=== PATIENT | male | born 1960 | race Caucasian/White ===

== ENCOUNTER 2017-06-07 11:18 | Emergency (ER) | payer BC, OTHER ==
[~2017-06-07] VITALS: Ht 177.8 cm; Wt 115.0 kg
[~2017-06-07 11:18] MED LIST: ATOR40TA75 PO; BAYE325T12 PO; CIPR-249 PO; FARX1TAB5 PO; FENO48TA2 PO; GLIP1TAB51 PO; LISI2.5T3 PO; METF500T13 PO; PERC5TAB12 PO; SENN8.6T60 PO; VICT18IN SC
[2017-06-07] MEDS ORDERED: VIAG100T (11:33)
[2017-06-07] MEDS ORDERED: TOUJ1.2I (11:33)
--- NOTE | 2017-06-07 13:22 | REP ---
Clinical: Left testicular pain. Technique: Real time jimenez scale and color Doppler evaluation using linear high frequency transducer. Findings: Asymmetric increased vascularity to the left epididymis suggests acute left epididymitis. The bilateral testicles are normal in contour, size, echogenicity and vascularity without intratesticular mass lesion, infectious/inflammatory process or torsion. Incidental right epididymal head cyst measures 5 mm. No hydrocele. No varicocele. Right testicle measures 4.2 x 2.0 x 2.9 cm. Left testicle measures 3.7 x 2.0 x 3.1 cm. Impression: Left sided epididymitis. Signed by Rubin Zavaleta MD 06/07/2017 01:14 P
[2017-06-07] MEDS ORDERED: CIPR-249 PO (13:26)
[2017-06-07] MEDS ORDERED: NAPR500T PO (13:26)
[2017-06-07 13:34] VITALS: BP 109/67
== END 2017-06-07 13:35 | disposition home or self-care (01) ==
LOC: M ED 11:18
DX: R30.0 Dysuria (principal); N45.1 Epididymitis; I10 Essential (primary) hypertension; Z79.899 Other long term (current) drug therapy; Z79.84 Long term (current) use of oral hypoglycemic drugs; Z85.46 Personal history of malignant neoplasm of prostate

== ENCOUNTER → 2017-07-01 | Outpatient (REF) | payer OTHER ==
[~2017-07-01] MED LIST changes: +NAPR500T PO; +TOUJ1.2I; +VIAG100T
== END ==
LOC: M SMT 17:01
PROVIDERS: ATTEND Nurse Practitioner Women's Health
DX: N45.1 Epididymitis (principal)

== ENCOUNTER → 2019-06-24 | Outpatient (REF) | payer OTHER ==
[~2019-06-24] MED LIST changes: +GLIP10TA18 PO; -GLIP1TAB51 PO; +LISI-1046 PO; -LISI2.5T3 PO; +NAPR-837 PO; -NAPR500T PO
[2019-06-24 14:21] LABS: INR 2.12; PROTHROMBIN TIME 23.5 SECONDS (11.8-14.0)
== END ==
LOC: M SHH 13:16
PROVIDERS: ATTEND Internal Medicine Cardiovascular Disease
DX: Z95.2 Presence of prosthetic heart valve (principal)

== ENCOUNTER → 2020-06-24 | Outpatient (CLI) | payer OTHER ==
[~2020-06-24] MED LIST changes: +AMOX500C PO; +ASPI81TA86 PO; +FARX1TAB3 PO; -FENO48TA2 PO; +FENO48TA7 PO; -LISI-1046 PO; +LISI2.5T2 PO; +VASC1CAP2 PO; +WARF-20 PO
== END ==
LOC: M LABSMTC 08:48
PROVIDERS: ATTEND Anesthesiology
DX: Z01.812 Encounter for preprocedural laboratory examination (principal); Z20.828 Contact with and (suspected) exposure to other viral communicable diseases

== ENCOUNTER 2020-06-29 08:55 | Day surgery (SDC) | payer BC, OTHER ==
[~2020-06-29] VITALS: Ht 180.3 cm; Wt 120.6 kg
[~2020-06-29 08:55] MED LIST changes: -AMOX500C PO; +NS 1,000 ML IV ONE
[2020-06-29] MEDS ORDERED: AMOX500C PO (09:44)
[2020-06-29] MEDS ORDERED: propofoL 500 MG/50 ML VIAL As Ordered ONE ×2 (11:11→12:02)
[2020-06-29] MEDS ORDERED: LIDOCAINE 2% 100MG/5ML SDV (FOR ANES.) As Ordered ONE (11:11)
[2020-06-29] MEDS ORDERED: ePHEDrine SULFATE 25 MG/5 ML(5MG/ML) SYRINGE As Ordered ONE (11:29)
--- NOTE | 2020-06-29 12:19 | ROOR ---
Patient Name: Aramis Do Procedure Date: 06/29/2020 11:09 AM Date of : 1960 Age: 60 Room: [facility] Gender: Male Note Status: Finalized Procedure: Colonoscopy Indications: Screening for colorectal malignant neoplasm Providers: Reuben Schwarz MD Referring MD: EVERETT MILTON MD Requesting Provider: Medicines: Monitored Anesthesia Care Complications: No immediate complications. Procedure: Pre-Anesthesia Assessment: - Prior to the procedure, a History and Physical was performed, and patient medications and allergies were reviewed. The patient is competent. The risks and benefits of the procedure and the sedation options and risks were discussed with the patient. All questions were answered and informed consent was obtained. Patient identification and proposed procedure were verified by the physician, the nurse and the anesthesiologist in the procedure room. Mental Status Examination: alert and oriented. Airway Examination: normal oropharyngeal airway and neck mobility. Respiratory Examination: clear to auscultation. CV Examination: normal. Prophylactic Antibiotics: The patient does not require prophylactic antibiotics. Prior Anticoagulants: The patient has taken Coumadin (warfarin), last dose was 1 day prior to procedure. ASA Grade Assessment: III - A patient with severe systemic disease. After reviewing the risks and benefits, the patient was deemed in satisfactory condition to undergo the procedure. The anesthesia plan was to use monitored anesthesia care (MAC). Immediately prior to administration of medications, the patient was re-assessed for adequacy to receive sedatives. The heart rate, respiratory rate, oxygen saturations, blood pressure, adequacy of pulmonary ventilation, and response to care were monitored throughout the procedure. The physical status of the patient was re-assessed after the procedure. The Colonoscope was introduced through the anus and advanced to the terminal ileum, with identification of the appendiceal orifice and IC valve. The colonoscopy was technically difficult and complex due to significant looping. Successful completion of the procedure was aided by using manual pressure. The patient tolerated the procedure well. The quality of the bowel preparation was good. The ileocecal valve, appendiceal orifice, and rectum were photographed. Scope insertion time was 8 minutes. Scope withdrawal time was 10 minutes. The total duration of the procedure was 20 minutes. Findings: The perianal and digital rectal examinations were normal. The terminal ileum appeared normal. Three sessile polyps were found in the ascending colon and cecum. The polyps were 3 to 5 mm in size. These polyps were removed with a cold biopsy forceps. Resection and retrieval were complete. Verification of patient identification for the specimen was done by the physician and nurse using the patient's name, date and medical record number. Estimated blood loss was minimal. A 10 mm polyp was found in the descending colon. The polyp was sessile. The polyp was removed with a cold snare. Resection and retrieval were complete. For hemostasis, one hemostatic clip was successfully placed. There was no bleeding at the end of the procedure. A few small-mouthed diverticula were found in the sigmoid colon. Non-bleeding external and internal hemorrhoids were found during retroflexion. The hemorrhoids were medium-sized. Impression: - The examined portion of the ileum was normal. - Three 3 to 5 mm polyps in the ascending colon and in the cecum, removed with a cold biopsy forceps. Resected and retrieved. - One 10 mm polyp in the descending colon, removed with a cold snare. Resected and retrieved. Clip was placed. - Diverticulosis in the sigmoid colon. - Non-bleeding external and internal hemorrhoids. Recommendation: - Patient has a contact number available for emergencies. The signs and symptoms of potential delayed complications were discussed with the patient. Return to normal activities tomorrow. Written discharge instructions were provided to the patient. - High fiber diet. - Continue present medications. - Continue Coumadin (warfarin) at prior dose. Refer to primary physician for further adjustment of therapy. - Await pathology results. - Repeat colonoscopy in 3 - 5 years for surveillance based on pathology results. - Telephone GI clinic for pathology results in 2 weeks. - Return to primary care physician. Reuben Schwarz MD Reuben Schwarz MD 06/29/2020 12:18:14 PM Electronically signed by Reuben Schwarz MD Number of Addenda: 0 Note Initiated On: 06/29/2020 11:09 AM Estimated Blood Loss: Estimated blood loss was minimal.
[2020-06-29 12:36] VITALS: BP 120/56
== END 2020-06-29 12:36 | disposition home or self-care (01) ==
LOC: M OPP 08:55
PROVIDERS: ATTEND Internal Medicine Gastroenterology
DX: Z12.11 Encounter for screening for malignant neoplasm of colon (principal); K63.5 Polyp of colon; K57.30 Diverticulosis of large intestine without perforation or abscess without bleeding; K64.8 Other hemorrhoids; E11.9 Type 2 diabetes mellitus without complications; Z79.4 Long term (current) use of insulin; Z79.82 Long term (current) use of aspirin; Z79.01 Long term (current) use of anticoagulants; Z79.899 Other long term (current) drug therapy; Z85.46 Personal history of malignant neoplasm of prostate

== ENCOUNTER → 2020-08-11 | Outpatient (REF) | payer OTHER ==
[~2020-08-11] MED LIST changes: +AMOX500C PO; -NS 1,000 ML IV ONE
[2020-08-11 17:51] LABS: CREATININE, URINE 55.5 MG/DL; MALB URINE SIEMENS 53.9 MG/L; MAU/CREAT RATIO 97.1 MCG/MG (0.0-30.0)
== END ==
LOC: M LAB REF 16:50
PROVIDERS: ATTEND Nurse Practitioner Family
DX: E11.65 Type 2 diabetes mellitus with hyperglycemia (principal)

== ENCOUNTER → 2021-08-13 | Outpatient (REF) | payer OTHER ==
[~2021-08-13] MED LIST changes: -FENO48TA7 PO; +FENO48TA8 PO; -LISI2.5T2 PO; +LISI2.5T9 PO
[2021-08-13 18:42] LABS: CREATININE, URINE 68.1 MG/DL; MALB URINE SIEMENS 63.2 MG/L; MAU/CREAT RATIO 92.8 MCG/MG (0.0-30.0)
== END ==
LOC: M LAB REF 17:05
PROVIDERS: ATTEND Nurse Practitioner Family
DX: E11.65 Type 2 diabetes mellitus with hyperglycemia (principal)

== ENCOUNTER → 2022-08-07 | Outpatient (REF) | payer OTHER, BC ==
[2022-08-07 20:12] LABS: CREATININE, URINE 110.9 MG/DL; MAU/CREAT RATIO 117.2 MCG/MG (0.0-30.0)
== END ==
LOC: M LAB REF 16:40
PROVIDERS: ATTEND Nurse Practitioner Family
DX: E11.65 Type 2 diabetes mellitus with hyperglycemia (principal)

== ENCOUNTER → 2023-08-12 | Outpatient (REF) | payer OTHER ==
[2023-08-12 19:40] LABS: CREATININE, URINE 74.4 MG/DL; MAU/CREAT RATIO 73.9 MCG/MG (0.0-30.0)
== END ==
LOC: M LAB REF 17:18
PROVIDERS: ATTEND Nurse Practitioner Family
DX: E11.65 Type 2 diabetes mellitus with hyperglycemia (principal)

== ENCOUNTER 2023-08-29 07:24 | Day surgery (SDC) | payer BC, OTHER ==
[~2023-08-29] VITALS: Ht 177.8 cm; Wt 114.8 kg
[~2023-08-29 07:24] MED LIST changes: +ALBU8.5H INH; +ATOR80TA59 PO; +BAYE81TA10 PO; +GLIP10TA6 PO; +METF10004 PO; +NOVOINJ3 SC; +NS 1,000 ML IV ONE; +SEMA1PEN2 SC; +TOUJ300I2 SC; +WARF-23 PO
[2023-08-29] MEDS ORDERED: propofoL 200 MG/20 ML VIAL As Ordered ONE (08:10)
[2023-08-29] MEDS ORDERED: LIDOCAINE 2% 100MG/5ML SDV (FOR ANES.) As Ordered ONE (08:10)
[2023-08-29 09:25] VITALS: BP 68/74; TEMP 96.8; O2SAT 98
== END 2023-08-29 09:28 | disposition home or self-care (01) ==
LOC: M SDC 07:24
PROVIDERS: ATTEND Internal Medicine Gastroenterology
DX: Z12.11 Encounter for screening for malignant neoplasm of colon (principal); K64.8 Other hemorrhoids; K64.4 Residual hemorrhoidal skin tags; E11.9 Type 2 diabetes mellitus without complications; Z86.010 Personal history of colon polyps; Z85.46 Personal history of malignant neoplasm of prostate; Z95.2 Presence of prosthetic heart valve; Z79.899 Other long term (current) drug therapy; Z79.84 Long term (current) use of oral hypoglycemic drugs; Z79.01 Long term (current) use of anticoagulants; R32 Unspecified urinary incontinence; E78.00 Pure hypercholesterolemia, unspecified

== ENCOUNTER 2023-11-28 07:11 | Day surgery (SDC) | payer BC, OTHER ==
[~2023-11-28] VITALS: Ht 177.8 cm; Wt 116.2 kg
[~2023-11-28 07:11] MED LIST changes: +ALBU8.5H; +HUMA100I5 SQ; +LIDOCAINE 1% MDV 20ML VIAL As Ordered ONE; +SEMA0.257 SQ; +WARF4TAB51 PO; +dexmedeTOMIDine (4MCG/ML)200MCG/50ML BTL (PRECEDEX) As Ordered ONE; +propofoL 200 MG/20 ML VIAL As Ordered ONE
[2023-11-28] MEDS ORDERED: ceFAZolin SOD 2 GM in IV 1 EA IV STA (07:27)
[2023-11-28] MEDS: ceFAZolin SOD 2 GM in IV 1 EA IV ONE (08:02)
[2023-11-28 09:35] VITALS: BP 133/63; TEMP 96.4; O2SAT 97
== END 2023-11-28 09:37 | disposition home or self-care (01) ==
LOC: M OPP 07:11
PROVIDERS: ATTEND Internal Medicine Gastroenterology
DX: Z86.010 Personal history of colon polyps (principal); D12.6 Benign neoplasm of colon, unspecified; K64.4 Residual hemorrhoidal skin tags; K64.8 Other hemorrhoids; E11.9 Type 2 diabetes mellitus without complications; I35.9 Nonrheumatic aortic valve disorder, unspecified; Z79.01 Long term (current) use of anticoagulants; Z79.02 Long term (current) use of antithrombotics/antiplatelets; Z79.4 Long term (current) use of insulin; Z79.82 Long term (current) use of aspirin; Z79.899 Other long term (current) drug therapy
CPT/HCPCS: 45385; 88305; J0690